=== PATIENT | male | born 1955 | race Caucasian/White ===

== ENCOUNTER 2019-05-05 12:34 | Emergency (ER) | payer BC ==
--- NOTE | 2019-05-05 13:09 | ER Document Report ---
ED Medical Screen (RME) - General Chief Complaint: Dizziness Stated Complaint: DIZZINESS Time Seen by Provider: 05/05/19 13:01 Mode of Arrival: Wheelchair Information source: Patient Notes: 64-year-old male presents to ED for complaint of headache weakness dizziness chest tightness nausea and lightheaded and things move when he picks his head up. He states is been going on for several days. He states he is not from this area he is working his [employer] he was at home but he had to get back because he felt a little better. He states at first he thought it was a sinus problem so he took some sinus medications but that did not help any. He states he took some BC acetaminophen this morning. Patient is alert oriented respirations regular and unlabored speaking in full sentences. He states he does feel off balance. 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 I have greeted and performed a rapid initial assessment of this patient. A comprehensive ED assessment and evaluation of the patient, analysis of test results and completion of medical decision making process will be conducted by an additional ED providers. Dictation of this chart was performed using voice recognition software; therefore, there may be some unintended grammatical errors. TRAVEL OUTSIDE OF THE [place] IN LAST 30 DAYS: No - Related Data Allergies/Adverse Reactions: No Known Allergies Allergy (Unverified 05/05/19 13:06) Past Medical History - Social History Chew tobacco use (# tins/day): No Frequency of alcohol use: None Drug Abuse: None - Past Medical History Cardiac Medical History: Reports: Hx Hypertension Endocrine Medical History: Reports: Hx Diabetes Mellitus Type 2 Renal/ Medical History: Denies: Hx Peritoneal Dialysis Past Surgical History: Reports: Hx Orthopedic Surgery - elbow Physical Exam - Vital signs Vitals: Temp Pulse Resp BP Pulse Ox 98.3 F 103 H 20 149/99 H 94 05/05/19 12:40 05/05/19 12:40 05/05/19 12:40 05/05/19 12:40 05/05/19 12:40 Course - Vital Signs Vital signs: Temp Pulse Resp BP Pulse Ox 98.3 F 103 H 20 149/99 H 94 05/05/19 12:40 05/05/19 12:40 05/05/19 12:40 05/05/19 12:40 05/05/19 12:40
[2019-05-05 13:34] LABS: ABSOLUTE EOSINOPHILS # (AUTO) 0.1 10^3/uL (0.0-0.6); ABSOLUTE LYMPHOCYTES (AUTO) 1.1 10^3/uL (0.5-4.7); ABSOLUTE MONOCYTES (AUTO) 0.6 10^3/uL (0.1-1.4); ABSOLUTE NEUT (AUTO) 7.9 10^3/uL (1.7-8.2); BASOPHILS % (AUTO) 0.4 % (0-2); EOSINOPHILS % (AUTO) 0.9 % (0-6); HEMOGLOBIN 13.3 g/dL (13.5-17.0); LYMPHOCYTES % (AUTO) 11.1 % (13-45); MEAN CORPUSCULAR HEMOGLOBIN 29.3 pg (27.0-33.4); MEAN CORPUSCULAR HGB CONC 34.2 g/dL (32.0-36.0); MEAN CORPUSCULAR VOLUME 86 fl (80-97); MONOCYTES % (AUTO) 6.2 % (3-13); PLATELET COUNT 240 10^3/uL (150-450); RED BLOOD COUNT 4.55 10^6/uL (4.35-5.55); RED CELL DISTRIBUTION WIDTH 13.4 % (11.5-14.0); SEGMENTED NEUTROPHILS % (AUTO) 81.4 % (42-78); TOTAL CELLS COUNTED % (AUTO) 100 %; WHITE BLOOD COUNT 9.7 10^3/uL (4.0-10.5)
--- NOTE | 2019-05-05 13:35 | RADIOLOGY REPORT (SQ) ---
EXAM DESCRIPTION: CT HEAD WITHOUT COMPLETED DATE/TIME: 05/05/2019 1:24 pm REASON FOR STUDY: Dizziness lightheadedness vertigo headache COMPARISON: None. TECHNIQUE: Axial images acquired through the brain without intravenous contrast. Images reviewed wi th bone, brain and subdural windows. Additional sagittal and coronal reconstructions were generated. Images stored on PACS. All CT scanners at this facility use dose modulation, iterative reconstruction, and/or weight based d osing when appropriate to reduce radiation dose to as low as reasonably achievable (ALARA). [facility]: Dose Right [facility]: CareDose [facility]: Dose Right [facility]: Teradose 4D [facility]: [employer] RADIATION DOSE: CT Rad equipment meets quality standard of care and radiation dose reduction techniq ues were employed. CTDIvol: 53.2 mGy. DLP: 1070 mGy-cm. mGy. LIMITATIONS: None. FINDINGS: VENTRICLES: Prominent. CEREBRUM: No masses. No hemorrhage. No midline shift. Areas of low density in the white matter mos t likely due to chronic micro-vascular ischemic change. No evidence for acute infarction. CEREBELLUM: No masses. No hemorrhage. No alteration of density. No evidence for acute infarction. EXTRAAXIAL SPACES: Mild age-related involutional change. No fluid collections. No masses. ORBITS AND GLOBE: No intra- or extraconal masses. Normal contour of globe without masses. CALVARIUM: No fracture. PARANASAL SINUSES: No fluid or mucosal thickening. SOFT TISSUES: No mass or hematoma. OTHER: No other significant finding. IMPRESSION: MILD CHRONIC CHANGES OF ATROPHY AND MICROVASCULAR ISCHEMIA. NO ACUTE PROCESS. EVIDENCE OF ACUTE STROKE: NO. TECHNICAL DOCUMENTATION: JOB ID: [id number] Quality ID # [id number]: Final reports with documentation of one or more dose reduction techniques (e.g., Au tomated exposure control, adjustment of the mA and/or kV according to patient size, use of iterative reconstruction technique) 2010 [employer]- All Rights Reserved Reading location - IP/workstation name: [email or web address]
--- NOTE | 2019-05-05 13:36 | RADIOLOGY REPORT (SQ) ---
EXAM DESCRIPTION: CHEST 2 VIEWS COMPLETED DATE/TIME: 05/05/2019 1:29 pm REASON FOR STUDY: Chest tightness cough dizziness COMPARISON: None. EXAM PARAMETERS: NUMBER OF VIEWS: two views TECHNIQUE: Digital Frontal and Lateral radiographic views of the chest acquired. RADIATION DOSE: NA LIMITATIONS: none FINDINGS: LUNGS AND PLEURA: No opacities, masses or pneumothorax. No pleural effusion. MEDIASTINUM AND HILAR STRUCTURES: No masses or contour abnormalities. HEART AND VASCULAR STRUCTURES: Heart normal size. No evidence for failure. BONES: No acute findings. HARDWARE: None in the chest. OTHER: No other significant finding. IMPRESSION: NO ACUTE RADIOGRAPHIC FINDING IN THE CHEST. TECHNICAL DOCUMENTATION: JOB ID: [id number] [email or web address]- All Rights Reserved Reading location - IP/workstation name: [email or web address]
[2019-05-05 13:41] LABS: PROTHROMBIN TIME 13.2 SEC (11.4-15.4)
[2019-05-05 13:53] LABS: ALANINE AMINOTRANSFERASE 27 U/L (21-72); ALBUMIN 4.2 g/dL (3.5-5.0); ALKALINE PHOSPHATASE 77 U/L (38-126); ANION GAP 10 (5-19); ASPARTATE AMINO TRANSFERASE 22 U/L (17-59); BILIRUBIN,DIRECT 0.2 mg/dL (0.0-0.4); BILIRUBIN,TOTAL 0.6 mg/dL (0.2-1.3); BLOOD UREA NITROGEN 22 mg/dL (7-20); CALCIUM 9.4 mg/dL (8.4-10.2); CARBON DIOXIDE 27 mmol/L (22-30); CHLORIDE 102 mmol/L (98-107); CREATINE KINASE 55 U/L (55-170); GLUCOSE 177 mg/dL (75-110); LIPASE 99.4 U/L (23-300); POTASSIUM 4.2 mmol/L (3.6-5.0); SODIUM 138.5 mmol/L (137-145); TOTAL PROTEIN 7.2 g/dL (6.3-8.2)
[2019-05-05 14:06] LABS: TROPONIN I < 0.012 ng/mL
--- NOTE | 2019-05-05 16:08 | ER Document Report ---
ED General - General Chief Complaint: Dizziness Stated Complaint: DIZZINESS Time Seen by Provider: 05/05/19 13:01 Primary Care Provider: RISHI RADFORD MD [ACTIVE STAFF] - Follow up as needed Mode of Arrival: Wheelchair Notes: HPI: Patient is a 64-year-old male who states for the last 3 days he has had a little runny nose and congestion with a nonproductive cough. Patient states that times if he leans to the right he feels as if the room is "moving". He states a very mild nonradiating frontal headache, intermittent, 1 out of 10 in intensity. No blurry vision or neck pain. No recent trauma. No fevers or vomiting. He does state a mild nonproductive cough. Patient states last night he had some mild right-sided upper chest discomfort, 2 out of 10 maximum. No radiation. No aggravating or relieving factors. No radiation down the arms. He denies any weakness or numbness to the arms. He currently denies any headache or chest pain. ROS: See HPI All other review of systems reviewed and otherwise negative Reviewed vital signs and nursing note as charted by RN. PHYSICAL EXAM: CONSTITUTIONAL: Alert and oriented and responds appropriately to questions. Well-appearing; well-nourished HEAD: Normocephalic; atraumatic EYES: PERRL; no nystagmus noted ENT: Normal nose; no rhinorrhea; moist mucous membranes; pharynx without lesions noted NECK: Supple without meningismus; non-tender; no carotid bruit; no cervical lymphadenopathy, no masses CARD: Regular rate and rhythm; no murmurs; symmetric distal pulses RESP: Normal chest excursion without splinting or tachypnea; breath sounds clear and equal bilaterally; no wheezes, no rhonchi, no rales ABD/GI: Normal bowel sounds; non-distended; soft, non-tender BACK: The back appears normal and is non-tender to palpation EXT: Normal ROM in all joints; non-tender to palpation; no edema SKIN: No acute lesions noted NEURO: CN 2-12 intact; 5/5 bilateral upper and lower extremity strength with sensation intact to light touch PSYCH: The patient's mood and manner are appropriate. Grooming and personal hygiene are appropriate TRAVEL OUTSIDE OF THE [place] IN LAST 30 DAYS: No - Related Data Allergies/Adverse Reactions: No Known Allergies Allergy (Unverified 05/05/19 13:06) Past Medical History - General Information source: Patient - Social History Smoking Status: Never Smoker Chew tobacco use (# tins/day): No Frequency of alcohol use: None Drug Abuse: None Family History: Reviewed & Not Pertinent Patient has suicidal ideation: No Patient has homicidal ideation: No - Past Medical History Cardiac Medical History: Reports: Hx Hypertension Endocrine Medical History: Reports: Hx Diabetes Mellitus Type 2 Renal/ Medical History: Denies: Hx Peritoneal Dialysis Past Surgical History: Reports: Hx Orthopedic Surgery - elbow Physical Exam - Vital signs Vitals: Temp Pulse Resp BP Pulse Ox 98.3 F 103 H 20 149/99 H 94 05/05/19 12:40 05/05/19 12:40 05/05/19 12:40 05/05/19 12:40 05/05/19 12:40 Course - Re-evaluation Re-evalutation: Given the history and physical examination a CT scan of the head as well as a cardiac evaluation was initiated in triage. Given the headache of only 1 out of 10 in intensity, currently no headache, no trauma, intermittent in nature, no blurry vision, I do believe subarachnoid hemorrhage, temporal arteritis, acute angle-closure glaucoma, bacterial meningitis, or to be extremely unlikely. Given the lack of any shortness of breath, calf pain or leg swelling, no recent trips or travel, I do believe pulmonary embolism and dissection to be unlikely. Patient had a very transient episode of pain to the right upper chest. This was greater than 6 hours ago. Patient is a diabetic but has no family history of early cardiac disease and has never smoked. Low pretest probability for ACS at this time. Given the runny nose and congestion with a nonproductive cough, followed by signs and symptoms consistent with vertigo, I do believe that this could be vertigo related to the upper respiratory tract infection. Patient has no signs or symptoms of mastoiditis or ear effusions. 05/05/19 16:06 Initial laboratory work and CT scan as recorded. Still no focal neurological deficits. I will proceed with a MRI of the brain. 05/05/19 17:38 MRI as recorded. Meclizine has been provided. We will perform a repeat troponin at the 3-hour tania. Heart score is less than or equal to 3. 05/05/19 19:04 Repeat troponin as recorded. Patient denies any and all symptomatology at this time. He denies any lightheadedness or dizziness. He denies any feelings of movement. He still denies any chest discomfort. Given the above history and physical, extensive work-up, patient will be di scharged home with strict return precautions, a primary care physician instructions for referral, and a short course of meclizine. - Vital Signs Vital signs: Temp Pulse Resp BP Pulse Ox 98.3 F 103 H 20 149/99 H 94 05/05/19 12:40 05/05/19 12:40 05/05/19 12:40 05/05/19 12:40 05/05/19 12:40 - Laboratory Result Diagrams: 05/05/19 13:12 05/05/19 13:12 Laboratory results interpreted by me: 05/05/19 05/05/19 13:12 13:12 Hgb 13.3 L Seg Neutrophils % 81.4 H Lymphocytes % 11.1 L BUN 22 H Glucose 177 H Discharge - Discharge Clinical Impression: Vertigo, Nasal congestion, Chest discomfort Condition: Good Disposition: HOME, SELF-CARE Additional Instructions: Come back immediately with any worsening or return of dizziness or lightheadedness, return of pain, any fevers or vomiting, weakness or numbness, or any other acute problems. Please follow-up with the primary care physician we have discussed. Prescriptions: Meclizine HCl [Antivert 25 mg Tablet] 25 mg PO Q8 #12 tablet Referrals: RISHI RADFORD MD [ACTIVE STAFF] - Follow up as needed
[2019-05-05 16:55] LABS: APPEARANCE,URINE CLEAR; BILIRUBIN,URINE NEGATIVE (NEGATIVE); COLOR,URINE YELLOW; GLUCOSE, URINE NEGATIVE (NEGATIVE); KETONES,URINE NEGATIVE (NEGATIVE); LEUKOCYTE ESTERASE,URINE NEGATIVE (NEGATIVE); NITRITE,URINE NEGATIVE (NEGATIVE); PROTEIN,URINE NEGATIVE (NEGATIVE); URINE SPECIFIC GRAVITY 1.023; UROBILINOGEN,URINE NEGATIVE mg/dL (<2.0)
--- NOTE | 2019-05-05 17:04 | RADIOLOGY REPORT (SQ) ---
EXAM DESCRIPTION: MRI HEAD WITHOUT COMPLETED DATE/TIME: 05/05/2019 4:51 pm REASON FOR STUDY: 11; VERTIGO COMPARISON: CT brain done earlier the same day. TECHNIQUE: Multiplanar imaging includes non-contrasted T1, T2, FLAIR, and Diffusion with ADC map seq uences. Images stored on PACS. LIMITATIONS: None. FINDINGS: ANATOMY: No anomalies. Normal vascular flow voids. Pituitary fossa normal. CSF SPACES: Normal in size and contour. No hemorrhage. CEREBRUM: A few high-signal intensity lesions scattered throughout the white matter on FLAIR imaging with distribution suggesting chronic micro-vascular ischemic change. Sulci and gyri normal in size a nd contour. No evidence of hemorrhage, mass or extraaxial fluid collection. POSTERIOR FOSSA: No signal alteration. No hemorrhage. No edema, masses or mass effect. Internal anabel tory canals, cerebello-pontine angles, mastoids normal. DIFFUSION: Negative for acute or sub-acute infarction. ORBITS: No masses. Globes normal. PARANASAL SINUSES: No fluid levels. Mucosa normal. OTHER: No other significant finding. IMPRESSION: MINIMAL MICROVASCULAR ISCHEMIC CHANGE. OTHERWISE NORMAL STUDY. EVIDENCE OF ACUTE STROKE: NO. TECHNICAL DOCUMENTATION: JOB ID: [id number] [employer]- All Rights Reserved Reading location - IP/workstation name: [email or web address]
[2019-05-05] MEDS ORDERED: MECLIZINE HCL 25 MG TABLET PO ONE (17:39)
[2019-05-05 19:25] VITALS: BP 147/93
--- NOTE | 2019-05-05 20:01 | EKG REPORT ---
SEVERITY:- NORMAL ECG - SINUS RHYTHM : Confirmed by: Jazlyn Mayes MD 05-May-2019 20:00:41
== END 2019-05-05 19:24 | disposition home or self-care (01) ==
LOC: EDBD → ER 12:34
DX: R42 Dizziness and giddiness (principal); R07.9 Chest pain, unspecified; R09.81 Nasal congestion; R05 Cough; R51 Headache; I10 Essential (primary) hypertension; E11.9 Type 2 diabetes mellitus without complications
CPT/HCPCS: 36415; 70450; 70551; 71046; 80053; 81001; 82550; 82553; 83690; 84484; 85025; 85610; 85730; 93005; 93010; 99284